=== PATIENT | female | born 1940 | race Caucasian/White ===

== ENCOUNTER 2016-10-07 20:37 | Emergency (ER) | payer MEDICARE ==
--- NOTE | ~2016-10-07 | ER ---
PATIENT'S NAME: AYAZ VIRGEN [facility] AGE: 76 Y [address] ROOM: [place] [address] LOCATION: [facility] ADMIT DATE: 10/07/2016 ER/Outpatient Report DISCHARGE DATE: 10/07/2016 FAMILY PHYSICIAN: Elen Rockwell MD ATTENDING PHYSICIAN: Tyrese Valente Admission date and time documented in the medical record. I saw the patient at 2045 hours. CHIEF COMPLAINT: Possible stroke with visual changes, headache, nausea, lightheadedness, and dizziness. HISTORY OF PRESENT ILLNESS: The patient is a 76-year-old female, who about 50 minutes prior to admission in the emergency room had acute onset of stroke-like symptoms with headache, nausea, double vision. She was unstable with walking. She had dizziness, lightheadedness with some vertigo, brought to the emergency room by her for evaluation by private vehicle. On arrival, the patient is awake, alert, responsive. Had generalized headache. No eye, ear, nose, and throat pain. No neck or spine pain. No chest pain. She was a bit short of breath and hyperventilating. Quite anxious. No abdominal pain. Some nausea, but no vomiting, diarrhea, or urinary frequency, urgency, dysuria. No incontinence of urine or stool. No seizure activity. No history of cerebrovascular accident and transient ischemic attack. No history of diabetes or thyroid disease. No psych issues, but was quite anxious as stated above. No recent coughs, colds, flus, fever, chills, or sweats. She was dizzy, lightheaded, but no syncope or near syncope. No fall or trauma. No joint or muscle swelling, redness, or pain. No skin eruptions or rash. HOME MEDICATIONS: See attached medication list. ALLERGIES: NONE. SOCIAL HISTORY: Nonsmoker. Occasional intake of alcohol. PAST MEDICAL HISTORY: Hypertension, dyslipidemia, degenerative joint disease, degenerative osteoarthritis, and left breast cancer. PAST SURGICAL HISTORY: Partial left breast mastectomy, bilateral total knee arthroplasty, and PATIENT'S NAME: AYAZ VIRGEN [facility] AGE: 76 Y [address] ROOM: [place] [address] LOCATION: ED ADMIT DATE: 10/07/2016 ER/Outpatient Report DISCHARGE DATE: 10/07/2016 FAMILY PHYSICIAN: Elen Rockwell MD ATTENDING PHYSICIAN: Tyrese Valente. REVIEW OF SYSTEMS: All systems reviewed by me are negative with the exception of those discussed in the history of present illness. PHYSICAL EXAMINATION: VITAL SIGNS: Pulse 85 and regular, respiration 20, blood pressure 175/87, and O2 saturation on room air is 97%. [place] scale was 15. HEAD: Normocephalic. No abrasion, contusion, laceration, swelling of the scalp or face. EYES: Extraocular muscles intact. PERRL. Sclerae and conjunctivae are clear, nonicteric. Fundi negative. EARS: Clear TMs bilaterally. NOSE: Clear. THROAT: Clear. Mucous membranes moist. Teeth, jaw intact. NECK: Full range of motion. No tenderness. No thyromegaly or cervical adenopathy. No nuchal rigidity. SPINE: Nontender. No deformity. LUNGS: Clear. Good air flow. No rales, rhonchi, or wheezes. HEART: Regular. Pulses are palpable. No chest wall or ribcage pain to palpation. ABDOMEN: Soft, nondistended, nontender. Active bowel tones. No organomegaly or abnormal mass palpable. No CVA tenderness. PELVIS: Stable and nontender extremities moves all 4 extremities. No peripheral edema, cyanosis, or deformity. NEUROLOGIC: NIH stroke scale was zero. SKIN: Clear and no eruptions or rash. LABORATORY DATA: CT scan of the head showed no intracranial bleed, midline shift or mass effect. CT scan was read by Radiology, see dictated transcribed report. CMS was normal except for an elevated glucose 105. CPK was 61. CK-MB was 1.6. Troponin I was less than 0.04. CRP was 0.48. Free T4 was 0.9 with a TSH of 5.16. White count is 9600, 51 segs, 34 lymphs, 7 monos, 3 eos, 1 baso. Hemoglobin is 14.5, hematocrit 42.8, platelet count is 288,000. PTT was 26, pro-time is 9.5 with an INR 0.91. Procalcitonin was less than 0.05. Sedimentation rate was 22. Lactate was 1.8. Venous pH was 7.46. Urine showed 2 to 5 whites, negative reds, 0 to 2 epithelial cells, few bacteria, 0 to 2 hyaline cast per high-powered field. D-dimer was 0.68. IMPRESSION: 1. Benign positional vertigo with accompanied lightheadedness and dizziness. Most likely, vestibular in nature of the inner ear in nature. She did have accompanying nausea, but no vomiting. Had a generalized headache. PATIENT'S NAME: AYAZ VIRGEN [facility] AGE: 76 Y [address] ROOM: [place] [address] LOCATION: ED ADMIT DATE: 10/07/2016 ER/Outpatient Report DISCHARGE DATE: 10/07/2016 FAMILY PHYSICIAN: Elen Rockwell MD ATTENDING PHYSICIAN: Tyrese Valente Had some visual changes. Had accompanied anxiety and hyperventilation. 2. History of hypertension. 3. History of dyslipidemia. 4. History of left breast cancer. 5. History of degenerative joint disease with degenerative osteoarthritis. PLAN: The patient was given Antivert 25 mg orally here in the emergency department. Refused Valium since it made her more anxious by history. The patient finally calmed down, stabilized her respiratory rate, had no further neurological changes or visual changes. The patient dismissed home, observation, activity as tolerated. Continue present home medications and care. Antivert 25 mg 4 times a day for a week. Follow up with personal physician 3 to 4 days or to come back to the emergency room sooner if needed. Discussion ensued with the patient concerning my findings and recommendations, she understands. Accumulated critical care time 30 minutes. MD KUSUM COLIN/modl /[id number] d: 10/08/16 0137 t: 10/08/16 1821, OUTPATIENT REPORT
[~2016-10-07 20:37] MED LIST: ASPIRIN EC81 MG PO; COQ10-VIT E 101 EACH PO; LISINOPRIL-HCT1 EAC1 PO; LOVASTATIN40 MG PO; NORCO 5-325 MG1 TAB PO; THERAGRAN-M1 TAB PO
[2016-10-07 20:55] LABS: BASOPHIL # 0.1 K/uL (0.0-0.2); BASOPHIL % 0.5 %; BICARBONATE 24.9 mmol/L (18.0-23.0); EOSINOPHIL # 0.3 K/uL (0.0-0.5); EOSINOPHIL % 2.7 %; HEMATOCRIT 42.8 % (33.0-46.0); HEMOGLOBIN 14.5 g/dL (10.0-15.0); IMMATURE GRANULOCYTE % 0.2 %; LACTATE 1.8 mEq/L (0.50-1.60); LYMPHOCYTE # 3.3 K/uL (0.8-4.0); LYMPHOCYTE % 34.1 %; MCH 30.1 pg (27.0-34.0); MCHC 33.9 gm/dL (32.0-36.5); MONOCYTE # 1.1 K/uL (0.0-1.0); MONOCYTE % 11.3 %; MPV 10.3 fl (9.4-12.4); NEUTROPHIL # (ANC) 4.9 K/uL (1.8-7.8); NEUTROPHIL % 51.2 %; NRBC % 0 /100WBC (0-0.00); PCO2 35 mmHg (35-45); PLATELET COUNT 288 K/uL (150-450); PO2 77 mmHg (80-90); RBC 4.81 M/uL (3.50-5.50); RDW-CV 12.8 % (11.9-14.6); WBC 9.6 K/uL (4.0-11.0)
[2016-10-07 21:09] LABS: INR - (THERAPEUTIC) 0.91 (0.92-1.07); PROTIME 9.5 SECONDS (9.8-11.4); PTT 26 SECONDS (25-32)
[2016-10-07 21:20] LABS: ALBUMIN 3.8 gm/dL (3.5-5.0); ALK PHOS 80 IU/L (33-138); ALT 40 IU/L (12-78); ANION GAP 12.9 (10.0-19.0); AST 22 IU/L (10-40); BLOOD UREA NITROGEN 16 mg/dL (6-24); CALCIUM 8.9 mg/dL (8.5-10.5); CHLORIDE 108 mMol/L (96-110); CO2 23 mMol/L (22-32); CPK 61 IU/L (21-215); CREATININE 0.6 mg/dL (0.5-1.1); POTASSIUM 3.9 mMol/L (3.7-5.1); SODIUM 140 mMol/L (135-145); TOTAL BILIRUBIN 0.3 mg/dL (0.0-1.5); TOTAL PROTEIN 7.3 g/dL (6.0-8.4)
[2016-10-07 21:20] LABS: BILIRUBIN URINE NEGATIVE (NEGATIVE); BLOOD URINE NEGATIVE /UL (NEGATIVE); COLOR URINE YELLOW (YELLOW); GLUCOSE URINE NEGATIVE (NEGATIVE); KETONE URINE NEGATIVE (NEGATIVE); LEUKOCYTES URINE 25 /UL (NEGATIVE); NITRITE URINE NEGATIVE (NEGATIVE); PROTEIN URINE NEGATIVE (NEGATIVE); UROBILINOGEN URINE NORMAL (NORMAL)
[2016-10-07 21:23] LABS: TURBIDITY URINE CLEAR (CLEAR)
[2016-10-07 21:26] LABS: BACTERIA URINE FEW (NEGATIVE); EPITHELIAL URINE 0-2 #/HPF (NEGATIVE); HYALINE CAST URINE 0-2 #/LPF (NEGATIVE); RBC URINE NEGATIVE #/HPF (NEGATIVE)
== END 2016-10-07 21:51 | disposition disaster alternative care site (69) ==
LOC: GMED 20:37
PROVIDERS: Emergency Medicine
DX: H81.10 Benign paroxysmal vertigo, unspecified ear (principal); I10 Essential (primary) hypertension; E78.5 Hyperlipidemia, unspecified; H53.9 Unspecified visual disturbance; M19.90 Unspecified osteoarthritis, unspecified site; F41.9 Anxiety disorder, unspecified; R06.4 Hyperventilation; Z85.3 Personal history of malignant neoplasm of breast; Z79.82 Long term (current) use of aspirin; Z90.12 Acquired absence of left breast and nipple; Z96.653 Presence of artificial knee joint, bilateral; Z90.710 Acquired absence of both cervix and uterus; Z79.899 Other long term (current) drug therapy
CPT/HCPCS: J3360

== ENCOUNTER → 2016-11-22 | Outpatient (CLI) | payer MEDICARE | LOC: GBCOE 13:31 | DX: Z12.31 Encounter for screening mammogram for malignant neoplasm of breast (principal) | CPT/HCPCS: G0202 ==